=== PATIENT | male | born 1960 | race Caucasian/White ===

== ENCOUNTER 2025-07-25 11:02 | Emergency (ER) | payer OTHER, SELFPAY ==
[2025-07-25] VITALS (8 sets, daily range): BP systolic 116–136; BP diastolic 80–85; PULSE 67–79; RESP 11–22; TEMP 37.3; O2SAT 95–98; BMI 30.3
--- NOTE | 2025-07-25 11:25 | ED.GENADULT ---
HPI - General Adult General Chief complaint: Dizziness/Vertigo Stated complaint: Heart went out of [facility] Time Seen by Provider: 07/25/25 11:13 Source: patient Mode of arrival: ambulatory Limitations: no limitations History of Present Illness HPI narrative: 65-year-old male presenting today after having palpitations for approximately 14 hours. Palpitations started midnight on Saturday and ended around 2:00 p.m. on Saturday, yesterday. He has been asymptomatic since however, he has a plane to catch this afternoon he wants to make sure that his heart is healthy. He states that this happened to him several years ago but did not last so long. While it was occurring he felt a little short of breath, lightheaded especially when standing. No chest pain. He denies any recent illness. Patient does drink alcohol regularly, did have 3 alcoholic beverages on Saturday night before this started. He does drink 1 cup of coffee daily. His past medical history significant for coronary artery disease, hypertension and hyperlipidemia. He is on metoprolol, rosuvastatin and a daily baby aspirin. He states that he had a very small artery on the heart that was 90% blocked and nothing was done because it was too small. He denies headache, confusion, altered mental status, changes in his speech. Related Data Home Medications ?Medication ?Instructions ?Recorded ?Confirmed aspirin 81 mg tablet,delayed 81 mg PO DAILY 07/25/25 07/25/25 release (Adult Aspirin Regimen) metoprolol succinate 25 mg 25 mg PO DAILY 07/25/25 07/25/25 tablet,extended release 24 hr rosuvastatin 20 mg tablet (Crestor) 10 mg PO DAILY 07/25/25 07/25/25 Allergies Allergy/AdvReac Type Severity Reaction Status Date / Time Sulfa (Sulfonamide Allergy Severe Verified 07/25/25 11:12 Antibiotics) Review of Systems Status of ROS: Reports: 10 or more systems reviewed and unremarkable except as noted in History and below PFSH PFS Social History Smoking Status: Never smoker How often do you have a drink containing alcohol: 2-3 times a week AUDIT-C Alcohol total score: 3 Non-prescribed substance use: denies use Exam Narrative: Exam Narrative: Well-nourished well-developed patient in no acute distress. Alert and oriented. Answers questions appropriately. Mood and affect are appropriate. Thoughts are goal oriented and rational. No tangential or magical thinking noted. Patient speaks in full sentences without needing to catch his breath. Patient does not appear ill or toxic. HEENT: Normocephalic atraumatic. Pupils are equally round reactive to light. Extraocular muscles are intact. Conjunctivae are moist without any icterus noted. Moist mucous membranes. Cardiovascular: Heart is regular rate and rhythm S1 and S2 are present without any murmurs. Lungs: Clear to auscultation bilaterally no wheezes rhonchi or rales are appreciated. Patient takes deep breaths without any discomfort. Skin: Well perfused without any obvious rashes. Const: Vital Signs, click to edit/add: Vital Signs - 24 hr 07/25/25 11:05 Temperature 99.1 F Pulse Rate [Right Pulse Oximeter] 79 Respiratory Rate 18 Blood Pressure [Ri ght Upper Arm] 136/85 Pulse Oximetry 97 Oxygen Delivery Me thod Room Air Course Course ED Course: We discussed possible arrhythmias. Patient's stated that she did check his pulse while this was occurring his pulse was around 100. Given that it occurred after night of alcohol consumption, both alcohol and dehydration can certainly play a part in palpitations. Therefore IV was established and 1 L of normal saline was ordered. EKG, read by me, shows normal sinus rhythm with a pulse of 70. Normal QRS, GA. and QTC intervals. Blood work is unremarkable. TSH pending at this time. Vital Signs Vital signs: Initial Vital Signs Temperature 99.1 F 07/25/25 11:05 Temperature Source Temporal Artery Scan 07/25/25 11:05 Pulse Rate 79 07/25/25 11:05 Pulse Rhythm Regular 07/25/25 11:05 Pulse Strength 3+ Normal 07/25/25 11:05 Respiratory Rate 18 07/25/25 11:05 Blood Pressure 136/85 07/25/25 11:05 Blood Pressure Mean 102 07/25/25 11:05 Blood Pressure Position Sitting 07/25/25 11:05 Pulse Oximetry 97 07/25/25 11:05 Oxygen Delivery Method Room Air 07/25/25 11:05 Vital Signs Temperature 99.1 F 07/25/25 11:05 Pulse Rate 79 07/25/25 11:05 Respiratory Rate 18 07/25/25 11:05 Blood Pressure 136/85 07/25/25 11:05 Pulse Oximetry 97 07/25/25 11:05 Oxygen Delivery Method Room Air 07/25/25 11:05 Temperature 99.1 F 07/25/25 11:05 Pulse Rate 79 07/25/25 11:05 Respiratory Rate 18 07/25/25 11:05 Blood Pressure 136/85 07/25/25 11:05 Pulse Oximetry 97 07/25/25 11:05 Oxygen Delivery Method Room Air 07/25/25 11:05 Medications Administered Medications: Discontinued Medications Generic Name Dose Route Start Last Admin Trade Name Freq PRN Reason Stop Dose Admin Sodium Chloride 1,000 mls @ 1,000 mls/hr 07/25/25 11:30 07/25/25 12:31 0.9 % Sodium Chloride 1000 Ml IV 07/25/25 12:29 1,000 mls/hr .Q1H CANDI Administration Medical Decision Making MDM Narrative Medical decision making narrative: 65-year-old male with sustained palpitations overnight. Patient flying back home to [place] this afternoon. Will follow up with his primary care provider. Recommend zio patch and follow-up with cardiology. Lab Data Lab results reviewed: Yes I reviewed the patient's lab results Labs: Lab Results 07/25/25 Range/Units 11:40 WBC 6.97 (4.50-11.00) K/uL RBC 4.51 (4.30-5.90) m/uL Hgb 14.1 (13.5-17.5) gm/dL Hct 43.0 (37.0-53.0) % MCV 95 (80-100) fL MCH 31 (26-34) pg MCHC 33 (32-36) gm/dL RDW Coeff of Nica 13.2 (11.5-15.5) % Plt Count 245 (140-440) K/uL Neut % (Auto) 53.9 (42.0-72.0) % Lymph % (Auto) 29.4 (20-44) % Coryell % (Auto) 12.5 H (0.0-11.0) % Eos % (Auto) 3.7 (0.0-7.0) % Baso % (Auto) 0.4 (0.0-3.0) % Neut # (Auto) 3.75 (1.7-7.0) K/uL Lymph # (Auto) 2.05 (0.90-2.90) K/uL Coryell # (Auto) 0.90 (0.00-0.90) K/UL Eos # (Auto) 0.26 (0.00-0.50) K/uL Baso # (Auto) 0.03 (0.00-0.30) K/uL Abs Immat Gran (auto) 0.01 (0.00-0.30) K/uL Imm/Tot Granulo (auto) 0.1 % Sodium 137 (135-149) mmol/L Potassium 3.7 (3.6-5.1) mmol/L Chloride 100 (96-114) mmol/L Carbon Dioxide 30 (20-32) mmol/L Anion Gap 7 (7-15) mEq/L BUN 16 (7-30) mg/dL Creatinine 1.0 (0.5-1.5) mg/dL Estimated Creat Clear 75.61 Estimated GFR 85 ml/min Glucose 114 (60-115) mg/dL Calcium 9.6 (8.4-10.6) mg/dL Magnesium 1.8 (1.5-2.6) mg/dL Total Bilirubin 1.1 (0.1-1.5) mg/dL Direct Bilirubin 0.2 (0.0-0.5) mg/dL AST 31 (12-35) U/L ALT 31 (4-50) U/L Alkaline Phosphatase 70 (40-150) U/L Total Protein 7.7 (6.0-8.3) g/dL Albumin 4.2 (3.3-5.0) g/dL ECG Data Attestation: I personally reviewed and interpreted this ECG as follows: Discharge Plan Discharge Clinical Impression: Palpitations Patient Disposition: Home, Self-Care Condition: Stable Additional Instructions: Your workup was normal today. I do recommend you follow-up with your primary care provider once you get home. You will likely need a heart monitor and cardiology follow-up. Recommend going to the emergency department if palpitations start again. Prescriptions: No Action rosuvastatin [Crestor] 20 mg tablet 10 mg PO DAILY metoprolol succinate 25 mg tablet extended release 24 hr 25 mg PO DAILY aspirin [Adult Aspirin Regimen] 81 mg tablet,delayed release (DR/EC) 81 mg PO DAILY Follow Up/Referrals: Provider,Not a Local [Primary Care Provider, Family Practice] Stand Alone Forms: MyHealth Info Instructions
--- OUTSIDE RECORDS SUMMARY | 2025-07-25 11:40 | XMS_ITS | Encounter Summary ---
Author Organization [facility] Address [address] [place] [address] Care Team Providers Care Popcorn Vendor Name Role Phone Clinician, Not Found Primary Care Provider Un available Encounter Details Date Type Department Care Team (Latest Contact Info) Description 07/03/1994 Notes/Orders Jin Buckley MD [address] [address] Social History Tobacco Use Types Packs/Day Years Used Date Smoking Tobacco: Never Assessed Sex and Gender Information Value Date Recorded Sex Assigned at Not on file Legal Sex Male 7:00 AM CDT Gender Identity Not on file Sexual Orientation Not on file documented as of this encounter Plan of Treatment Not on file documented as of this encounter Visit Diagnoses Not on filedocumented in this encounter Care Teams Popcorn Vendor Relationship Specialty Start Date End Date Clinician, Not Found, [place] [address] PCP - General 01/04/22 documented as of this encounter
--- OUTSIDE RECORDS SUMMARY | 2025-07-25 11:40 | XMS_ITS | Patient Health Record ---
Author Organization [facility] Address [address] [place], [place] [id number] Care Team Providers Care Precision Instrument Maker Name Role Phone AMELIA SHABAZZ Primary Care Provider AMELIA SHABAZZ Unavailable Unavailable Reason For Referral No Information Medications Medication SIG (Take, Route, Frequency, Duration) Notes Start Date End Date Status Rosuvastatin Calcium 40 MG Tablet 1 tablet Orally Once a day; Duration: 90 days Active Toprol XL 50 MG Tablet Extended Release 24 Hour 1 tablet Orally Once a day; Duration: 90 days Active Problems Problem Type SNOMED Code ICD Code Onset Dates Problem Status W/U Status Risk Notes Problem Essential hypertension (12285716) Essential (primary) hypertension (I10) Active confirmed Problem Erectile dysfunction (disorder) (108102774) Other male erectile dysfunction (N52.8) Active confirmed Problem Counseling (363206927) Other specified counseling (Z71.89) Active confirmed Problem Mixed hyperlipidemia (000075334) Mixed hyperlipidemia (E78.2) Active confirmed Plan Of Treatment Pending Test Test Name Order Date Functional Status Assessment (ADLS) 05/04 Medication Review 05/15/2022 BMI Documented 05/15/2022 Fall Prevention Discussion 05/15/2022 Pain Screening 05/15/2022 Blood Pressure 05/15/2022 Mental Health Issues Discussed Bladder Control Issues Discussed 022 Smoking Eval 05/15/2022 Cologuard 05/15/2022 Insurance Providers Payer Name Payer Address Payer Phone Subscriber Number Group Number Insured Name Patient Relationship to Insured Coverage Start Date Coverage End Date [employer] [address] [address] [place] [id number] ASHLEY GARAY Self - patient is the insured Medical (General) History Surgical History Surgery Date(Month/Year)
--- OUTSIDE RECORDS SUMMARY | 2025-07-25 11:40 | XMS_ITS | Encounter Summary ---
Author Organization [facility] Address [address] [place] [address] Care Team Providers Care Smoke And Flame Specialist Name Role Phone Clinician, Not Found Primary Care Provider Un available Encounter Details Date Type Department Care Team (Latest Contact Info) Description 1996 Notes/Orders Natasha Hernandes MD [address] [place] [id number] Social History Tobacco Use Types Packs/Day Years [...] on filedocumented in this encounter Care Teams Smoke And Flame Specialist Relationship Specialty Start Date End Date Clinician, [place] [address] PCP - General 01/04/22 documented as of this encounter
--- OUTSIDE RECORDS SUMMARY | 2025-07-25 11:40 | XMS_ITS | Encounter Summary ---
Author Organization [facility] Address [address] [place] [address] Care Team Providers Care Fuel Cell Builder Name Role Phone Clinician, Not Found Primary Care Provider Un available Encounter Details Date Type Department Care Team (Late st Contact Info) Description 03/07/1998 Notes/Orders RG-Adult [address] [place], [place] [id number] Timothy Mccollum MD Social History Tobacco Use Types Packs/Day Years Used Date Smoking Tobacco: Never Alcohol Use Standard Drinks/Week Comments Yes 0 (1 standard drink = 0.6 oz pur e alcohol) occ Sex and Gender Information Value Date Recorded Sex Assigned at Not on file Legal Sex Male 7:00 AM CDT Gender Identity Not on file Sexual Orientation Not on file documented as of this encounter Plan of Treatment Not on file documented as of this encounter Visit Diagnoses Not on filedocumented in this encounter Care Teams Fuel Cell Builder Relationship Specialty Start Date End Date Clinician, Not Found, [place] [address] PCP - General 01/04/22 documented as of this encounter
--- OUTSIDE RECORDS SUMMARY | 2025-07-25 11:40 | XMS_ITS | Encounter Summary ---
Author Organization [facility] Address [address] [place] [address] Care Team Providers Care Miter Cutter Name Role Phone Clinician, Not Found Primary Care Provider Un available Encounter Details Date Type Department Care Team (Late st Contact Info) Description 02/23/1997 Notes/Orders RG-Family [address] [address] Rosalba Mckeon, ACCOUNTING DIRECTOR, REMEDIAL TEACHER Social History Tobacco Use Types Packs/Day Years [...] on filedocumented in this encounter Care Teams Miter Cutter Relationship Specialty Start Date End Date Clinician, Not Found, [place] [address] PCP - General 01/04/22 documented as of this encounter
--- OUTSIDE RECORDS SUMMARY | 2025-07-25 11:40 | XMS_ITS | Encounter Summary ---
Author Organization [facility] Address [address] [place] [address] Care Team Providers Care Rug Dry Room Attendant Name Role Phone Joselito Herrera MD Primary Care Provider [phone] Reason for Visit * Reason Comments Med Refill Encounter Details Date Type Department Care Team (Late st Contact Info) Description 11/14/2024 Refill [facility] [address] [phone] Joselito Herrera MD [address] [phone] Social History Tobacco Use Types Packs/Day Years Used Date Smoking Tobacco: Some Days Cigars Passive Smoke Exposure: Past Smokeless Tobacco: Never Alcohol Use Standard Drinks/Week Comments Yes 0 (1 standard drink = 0.6 oz pur e alcohol) PHQ-2 Answer Date Recorded PHQ-9 Total Score 0 08/05/2024 Sex and Gender Information Value Date Recorded Sex Assigned at Male 01/15/2024 10:03 AM CDT Legal Sex Male 10:02 AM SUPERVISOR FURNACE ROOM Gender Identity Male 01/15/2024 10:03 AM CDT Sexual Orientation Straight 01/15/2024 10 :03 AM CDT documented as of this encounter Plan of Treatment Not on file documented as of this encounter Visit Diagnoses Not on filedocumented in this encounter Care Teams Rug Dry Room Attendant Relationship Specialty Start Date End [place] [id number] [place] [address] PCP - General Family Medicine 01/13/24 documented as of this encounter
--- OUTSIDE RECORDS SUMMARY | 2025-07-25 11:40 | XMS_ITS | Clinical Summary ---
Author Organization [facility] Address [address] [place] [address] Care Team Providers Care Manager Software Development Name Role Phone None, Primary Care Provider Unavailabl e Allergies Active Allergy Reactions Criticality Noted Date Comments Sulfa (Sulfonamide Antibiotics) 05/04 Medications aspirin 81 mg oral chewable tablet Chew and swallow 1 tablet (81 mg) once daily. 30 tablet 03/13/2018 1:34 PM CDT 8 Active nitroGLYCERIN (NITROSTAT) 0.4 mg sublingual tablet Take 1 tablet (0.4 mg) under the tongue every 5 (five) minutes as needed for Chest Pain. 25 tablet 03/13/2018 1:34 PM CDT 8 Active clopidogrel (PLAVIX) 75 mg oral tablet Take 1 tablet (75 mg) by mouth once daily. 30 tablet 03/13/2018 1:34 PM CDT 8 Active metoprolol succinate, XL, (TOPROL XL) 50 mg oral extended release tablet 24 HR Take 50 mg by mouth once daily. Active triamcinolone acetonide 0.1% (KENALOG) 0.1 % Top Oint ointment Apply 1 Application to skin twice a day as needed. Active multivit-min/fol ic/vit K/lycop (ONE-A-DAY MEN'S 50 PLUS ORAL) Take 1 tablet by mouth once daily. Active atorvastatin (LIPITOR) 80 mg oral tablet Take 1 tablet (80 mg) by mouth every morning. 30 tablet 11 8 Active isosorbide mononitrate (IMDUR) 30 mg oral extended release tablet 24 HR Take 1 tablet (30 mg) by mouth once daily. 30 tablet 11 03/13/2018 1:34 PM CDT 8 Active acetaminophen (TYLENOL) 325 mg oral tablet Take 1-2 tablets (325-650 mg) by mouth every 4 (four) hours as needed for Fever or Pain (for mild pain , sleep, or temperature greater than 101 F). 0 8 Active Active Problems Problem Noted Date Diagnosed Date ACS (acute coronary syndrome) 03/12/2018 Essential hypertension 03/12/2018 Hyperlipidemia 03/12/2018 Kidney stone 08/31/2014 Family History Medical History Relation Comments High Blood Pressure Father Relation Status Comments Father Social History Tobacco Use Types Packs/Day Years Used Date Smoking Tobacco: Never Smokeless Tobacco: Current Chew Alcohol Use Standard Drinks/Week Comments Yes 0 (1 standard drink = 0.6 oz pur e alcohol) socially Sex and Gender Information Value Date Recorded Sex Assigned at Not on file Legal Sex Male 6:58 AM CDT Gender Identity Not on file Sexual Orientation Not on file Last Filed Vital Signs Vital Sign Reading Time Taken Comments Blood Pressure 109/64 03/13/2018 12:04 PM CDT Pulse 52 03/13/2018 12:04 PM CDT Temperature 36.6 C (97.8 F) 03/13/2018 12:04 PM CDT Respiratory Rate 22 03/13/2018 12:04 PM CDT Oxygen Saturation 95% 03/13/2018 12:04 PM CDT Inhaled Oxygen Concentration - - Weight 94.1 kg (207 lb 6.4 oz) 03/12/2018 1:48 P M CDT Height 177.8 cm (5' 10) 03/12/2018 1:48 PM CDT Body Mass Index 29.76 03/12/2018 1:48 PM CDT Plan of Treatment Health Maintenance Due Date Last Done Comments Colonoscopy 1962 Hepatitis C Screening 1960 Anxiety Screening (CATHERINE-2) 1963 Depression Assessment (PHQ-2) 1963 Pneumococcal 50+ Years (1 of 2 - PCV) 1981 Zoster Vaccine (1 of 2) 02/08/2012 Yearly Review of HCD 03/12/2019 03/12/2018, 03/10/2018 RSV Vaccines (1 - Risk 60-74 years 1-dose series) 2022 COVID-19 Vaccine (2023-2 5 season) 2025 Influenza Vaccine (#1) 2025 08/29/1999 Adult Tetanus Booster 09/20/2025 09/20/2015 Meningococcal B Vaccine Aged Out No l onger eligible based on patient's age to complete this topic Medical Devices Implanted Type Area Pit Shovel Operator Device Identifier Shelf Expiration Date Model / Serial / Lot Stent Ureteral Inlay [id number] - [id number] Implanted:Qty: 1 on 09/01/2014 at [facility] [id number] / / [id number] [place] [address] [place] [address] [place] ELECT Advance Directives For more information, please contact: [phone] * Full Code (Latest Code Status on File) Date Activated Date Inactivated Comments 03/12/2018 2:00 PM 03/13/2018 8:03 PM Question Answer Comments How was code status determined? Patient * Full Code Date Activated Date Inactivated Comments 08/31/2014 5:44 PM 09/02/2014 3:05 AM Question Answer Comments How was code status determined? Patient * Full Code Date Activated Date Inactivated Comments 08/31/2014 4:45 PM 08/31/2014 5:44 PM Question Answer Comments How was code status determined? Patient Care Teams Manager Software Development Relationship Specialty Start Date End Date None, PCP - General 08/05/14
--- OUTSIDE RECORDS SUMMARY | 2025-07-25 11:40 | XMS_ITS | Clinical Summary ---
Author Organization [facility] Address [address] [place] [address] Care Team Providers Care Hr Business Partner Consultant Name Role Phone Joselito Herrera MD Primary Care Provider [phone] Allergies Active Allergy Reactions Criticality Noted Date Comments Sulfa (Sulfonamide Antibiotics) Hives High 03/06 hives., Medications aspirin (ECOTRIN) 81 MG enteric coated tablet Take 1 tablet (81 mg total) by mouth daily. Active multivitamin tablet Take 1 tablet by mouth daily. Active ezetimibe (ZETIA) 10 mg tablet Take 1 tablet (10 mg total) by mouth daily. 90 tablet 3 4 Active clobetasoL (TEMOVATE) 0.05 % ointment APPLY TWICE DAILY TO ECZEMA ON HANDS WITH OCCLUSION FOR UP TO TWO WEEKS FOR FLARES. 4 Active ipratropium (ATROVENT) 42 mcg (0.06 %) nasal sprayIndications:V iral upper respiratory tract infection 2 sprays into each nostril 3 (three) times a day as needed (runny nose, congestion). 15 mL 4 Active rosuvastatin (CRESTOR) 40 MG tabletIndications: Hyperlipidemia, unspecified hyperlipidemia type Take 1 tablet (40 mg total) by mouth daily. 90 tablet 1 4 Active metoprolol succinate XL (TOPROL-XL) 25 mg 24 hr tablet TAKE 1 TABLET BY MOUTH EVERY DAY 90 tablet 2 4 Active valsartan-hydrochl orothiazide (DIOVAN-HCT) 320-25 mg per tabletIndications: Primary hypertension TAKE 1 TABLET BY MOUTH EVERY DAY BEFORE BREAKFAST 90 tablet 1 Active Active Problems Problem Noted Date Diagnosed Date Tobacco use 02/18/2024 Encounter to establish care 02/18/2024 Coronary artery disease invo lving huslia heart without angina pectoris 12/05/2018 01/15/2024 Hyperlipidemia 09/22/2015 01/15/2024 Primary hypertension 03/12/2012 01/15/2024 Encounters Date Type Department Care Team Description 07/21/2025 Refill [facility] [address] [place] [phone] Joselito Herrera MD 05/28/2025 Refill [facility] [place] [address] [place] [phone] Delmer Saba MD Med Refill from Last 3 Months Immunizations Immunization Administration Dates Next Due Influenza Trivalent 08/29/1999 Td 01/17/1998 Tdap 09/20/2015 Family History Medical History Relation Name Comments Hypertension Father Cancer Mother Pulmonary Arterial Hypertension Sister Relation Name Status Comments Father Mother Sister Social History Tobacco Use Types Packs/Day Years Used Date Smoking Tobacco: Some Days Cigars Passive Smoke Exposure: Past Smokeless Tobacco: Never Tobacco Cessation:Ready to Q uit: No; Counseling Given: Yes Alcohol Use Standard Drinks/Week Comments Yes 0 (1 standard drink = 0.6 oz pur e alcohol) PHQ-2 Answer Date Recorded PHQ-9 Total Score 0 08/05/2024 Sex and Gender Information Value Date Recorded Sex Assigned at Male 01/15/2024 10:03 AM CDT Legal Sex Male 10:02 AM BEHAVIORAL SPECIALIST Gender Identity Male 01/15/2024 10:03 AM CDT Sexual Orientation Straight 01/15/2024 10 :03 AM CDT Last Filed Vital Signs Vital Sign Reading Time Taken Comments Blood Pressure 119/83 08/05/2024 1:10 PM CDT Pulse 84 08/05/2024 1:10 PM CDT Temperature - - Respiratory Rate 16 08/05/2024 1:10 PM CDT Oxygen Saturation - - Inhaled Oxygen Concentration - - Weight 95.3 kg (210 lb) 08/05/2024 1:10 PM CDT Height 175.3 cm (5' 9) 08/05/2024 1:10 PM CDT Body Mass Index 31.01 08/05/2024 1:10 PM CDT Plan of Treatment Health Maintenance Due Date Last Done Comments FLEXIBLE SIGMOIDOSCOPY 1962 FOBT 1960 STOOL DNA (COLOGUARD) 1962 50+ PNEUMOCOCCAL VACCINE (1 of 2 - PCV) 1981 COLONOSCOPY SCREENING 2007 COLORECTAL CANCER SCREENING 2007 SHINGLES VACCINES (1 of 2) 02/08/2012 COVID-19 VACCINE (1 - 2023-2 5 season) 2025 INFLUENZA VACCINE (#1) 2025 08/29/1999 HEPATITIS C SCREENING Completed 01/15/2024 MENINGOCOCCAL B SERIES VACCINE Aged Out No longer eligible based on patient's age to complete this topic Procedures Procedure Name Priority Date/Time Associated Diagnosis Comments HEPATITIS C ANTIBODY Routine 01/15/2024 9:06 AM CDT from Last 3 Months or Most Recently Relevant to Health Maintenance Results * Hepatitis C antibody (01/15/2024 9:06 AM CDT) Pathologist [facility] Hepatitis C Ab Non Reactive Non Reactive [facility] Comment: HCV antibody alone does not differentiate between previously resolved infection and active infection. Equivocal and Reactive HCV antibody results should be followed up with an HCV RNA test to support the diagnosis of active HCV infection. 01/15/2024 9:06 AM CDT 01/15/2024 Narrative [facility] - 01/16/2024 10:13 AM CDT Performed at: 01 - [facility] [id number] Shipping Clerk/Admin: Renan Otoole MD, Phone: [phone] Joselito Herrera MD LAB BLOOD ORDERABLES Ava wilbur Result [facility] from Last 3 Months or Most Recently Relevant to Health Maintenance Insurance [facility] Care Teams Hr Business Partner Consultant Relationship Specialty Start Date End Date Joselito [place]rera [place] [id number] [place] [address] PCP - General Family Medicine 01/13/24
--- OUTSIDE RECORDS SUMMARY | 2025-07-25 11:40 | XMS_ITS | Encounter Summary ---
Author Organization [facility] Address [address] [place] [address] Care Team Providers Care Personal Care Aid Name Role Phone Clinician, Not Found Primary Care Provider Un available Encounter Details Date Type Department Care Team (Late st Contact Info) Description 04/15/1995 Notes/Orders RG-Family [address] [address] Rosalba Mckeon, CORDWAINER, RN SANE Social History Tobacco Use Types Packs/Day Years [...] on filedocumented in this encounter Care Teams Personal Care Aid Relationship Specialty Start Date End Date Clinician, Not Found, [place] [address] PCP - General 01/04/22 documented as of this encounter
--- OUTSIDE RECORDS SUMMARY | 2025-07-25 11:40 | XMS_ITS | Encounter Summary ---
Author Organization [facility] Address [address] [place] [address] Care Team Providers Care Steam Meter Reader Name Role Phone Clinician, Not Found Primary Care Provider Un available Encounter Details Date Type Department Care Team (Late st Contact Info) Description 06/17/1996 Notes/Orders RG-Family Practice [address] [place] [id number] Francisca Ware MD Social History Tobacco Use Types Packs/Day [...] on filedocumented in this encounter Care Teams Steam Meter Reader Relationship Specialty Start Date End Date Clinician, Not Found, [place] [address] PCP - General 01/04/22 documented as of this encounter
--- OUTSIDE RECORDS SUMMARY | 2025-07-25 11:40 | XMS_ITS | Clinical Summary ---
[facility] Address [address], [place] [address] Care Team Providers Care Straightening Press Operator Name Role Phone Clinician, Not Found MD Primary Care Provider Un available Source Comments You are receiving this document as you are listed as the primary care provider,follow-up provider, or the patient has been referred to you for consultation.This is in compliance with the Medicare and[facility] Hospitalca[facility] EHR Incentive Program,which states Providers who transition their patient to another setting of careor provider of care or refers their patient to another provider of care shouldprovide summary care record for each transition of care or referral. [facility] Allergies Active Allergy Reactions Criticality Noted Date Comments Atorvastatin Hives High 03/17/2018 Sulfa Antibiotics Hives High 04/03/2011 hives., Medications aspirin 81 MG chewable tablet Chew and swallow 1 Tablet (81 mg) by mouth. 8 Active Multiple Vitamin (MULTI VITAMIN MENS OR) Take 1 Tab by mouth. Active nitroglycerin (NITROSTAT) 0.[address] 0.4 mg under tongue. 8 Active triamcinolone acetonide (KENALOG) 0.1 % ointmentIndicatio ns:Dermatitis Apply topically two times daily as needed. 80 g 0 Active metoprolol succinate (TOPROL XL) 50 MG 24 hour release tabletIndications :Essential hypertension (HRC) TAKE 1 TABLET BY MOUTH EVERY DAY 90 Tablet 1 Active rosuvastatin (CRESTOR) 20 MG tabletIndications :Coronary artery disease involving nikolski coronary artery of nikolski heart with unstable angina pectoris (HRC) TAKE 1 TABLET BY MOUTH EVERY DAY 90 Tablet 1 Active clobetasol (TEMOVATE) 0.05 % ointment Apply topically two times a day. 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 03/2000 Immunizations Immunization Administration Dates Next Due Flu Vac (3+ yrs) 08/29/1999 TDAP (BOOSTRIX) 09/20/2015 Td 01/17/1998 Varicella 01/18/1998(Deferred: Immune by Walter vaughan) Family History Medical History Relation Name Comments Allergies Father Asthma Father High Blood Pressure Father Cancer Mother lung Emphysema Mother Joint/Muscle Problem Mother Arthritis Sister 1 Allergies Sister 3 Asthma Sister 4 Relation Name Status Comments Father Alive Mother (Age 71) Brother Alive Sister 1 Alive Sister 2 Alive Sister 3 Sister 4 Social History Tobacco Use Types Packs/Day Years Used Date Smoking Tobacco: Never Cigarettes Smokeless Tobacco: Former Comments:chews occasionally Alcohol Use Standard Drinks/Week Comments Yes 5 (1 standard drink = 0.6 oz pur e alcohol) Sex and Gender Information Value Date Recorded Sex Assigned at Not on file Legal Sex Male 7:00 AM CDT Gender Identity Not on file Sexual Orientation Not on file Occupation Industry Job Start Date Job End Date Not on file Not on file Not on file Not on file Last Filed Vital Signs Vital Sign Reading Time Taken Comments Blood Pressure 180/99 10/26/2023 2:09 PM FINISH INSPECTOR Pulse 58 10/26/2023 2:09 PM FINISH INSPECTOR Temperature 36.6 C (97.8 F) 10/26/2023 2:09 PM FINISH INSPECTOR Respiratory Rate 16 10/26/2023 2:09 PM FINISH INSPECTOR Oxygen Saturation 98% 10/26/2023 2:0 9 PM FINISH INSPECTOR Inhaled Oxygen Concentration - - Weight 89.4 kg (197 lb) 08/18/2020 11:4 0 AM CDT patient reported Height 177.8 cm (5' 10) 08/18/2020 11: 40 AM CDT Body Mass Index 28.27 08/18/2020 11:40 AM CDT Plan of Treatment Health Maintenance Due Date Last Done Comments Colon Cancer Screening Plan Due 1960 Hep C Screening (Preventive Services) 1960 HIV Screening (Preventive Services) 1978 Pneumococcal Vaccine 50+ Yrs (1 of 2 - PCV) 1981 Zoster/Shingles Vaccine (1 of 2) 02/08/2012 Adult Preventive Visit 08/18/2021 08/18/2020 PSA Screening Discussion 09/08/2021 09/08/2020, 09/04 COVID-19 Vaccine ( - season) 2025 Influenza Vaccine (#1) 2025 08/29/1999 Cholesterol 09/08/2025 09/08/2020, 12/05, 09/20/2015, Additional history exists DTaP/Tdap/Td Vaccine (2 - Tdap) 09/20/2025 09/20/2015, 01/17/1998 RSV Vaccine (1 - 1-dose 75+ series) 2037 HepA Vaccine Aged Out No longer eligi ble based on patient's age to complete this topic HepB Vaccine Aged Out No longer eligi ble based on patient's age to complete this topic Hib Vaccine Aged Out No longer eligi ble based on patient's age to complete this topic IPV (Polio) Vaccine Aged Out No longe r eligible based on patient's age to complete this topic MCV4 Vaccine Aged Out No longer eligi ble based on patient's age to complete this topic Meningococcal B Vaccine Aged Out No l onger eligible based on patient's age to complete this topic Procedures Procedure Name Priority Date/Time Associated Diagnosis Comments PROSTATIC SPECIFIC ANTIGEN(SCREEN) Routine 09/08/2020 8:56 AM FINISH INSPECTOR Screening PSA (prostate specific antigen) LIPID PANEL & DIRECT LDL (IF NEEDED) Routine 09/08/2020 8:56 AM FINISH INSPECTOR Coronary artery disease involving nikolski coronary artery of nikolski heart with unstable angina pectoris (HRC) from Last 3 Months or Most Recently Relevant to Health Maintenance Results * Lipid Panel - LDLD If Trig High (09/08/2020 8:56 AM FINISH INSPECTOR) Cholesterol 169 0 - 199 mg/dL 09/08/2020 11:42 AM FINISH INSPECTOR [facility] Triglyceride 85 <=149 mg/dL 09/08/2020 11:42 AM [facility] HDL Cholesterol 44 >=40 mg/dL 0 11:42 AM [facility] LDL, Calculated 108 <130 mg/dL 0 11:42 AM [facility] Non HDL Chol, Calculated 125 mg/dL 09/08/2020 11:42 AM [facility] Cholesterol/HDL Ratio 3.8 09/08/2020 11:42 AM [facility] Hours Fasting 12 09/08/2020 11:42 AM FINISH INSPECTOR [facility] Blood Venipuncture / Unknown 09/08/2020 8:56 AM FINISH INSPECTOR 09/08/2020 8:56 AM FINISH INSPECTOR Sony Villegas APRN, SAS ETL DEVELOPER LAB_1 Fin al Result [facility] CLIA: [id number] [address] [place] [address], [facility] [address] [place] [address], [facility] [phone] * Prostatic Specific Antigen (09/08/2020 8:56 AM FINISH INSPECTOR) Prostatic Specific Antigen 0.8 0.0 - 4.0 ng/mL 09/08/2020 1:37 PM FINISH INSPECTOR [facility] Blood Venipuncture / Unknown 09/08/2020 8:56 AM FINISH INSPECTOR 09/08/2020 8:56 AM FINISH INSPECTOR Narrative [facility] - 09/08/2020 1:37 PM FINISH INSPECTOR The Manuel PSA Chemiluminescent immunoassay is used. Results obtained with different test methods or kits cannot be used interchangeably. us Sony Villegas APRN, SAS ETL DEVELOPER LAB_1 Fin al Result [facility] [address] [place] [address], [facility] from Last 3 Months or Most Recently Relevant to Health Maintenance Insurance MEDICA CHOICE * Guarantor: JORDEN CABELLO Account Type Relation to Patient Date of Phone Billing Address Personal/Family 1960 [id number] [id number] Care Teams Straightening Press Operator Relationship Specialty Start Date End Date Clinician, Not Found, [place] [address] PCP - General 01/04/22
--- OUTSIDE RECORDS SUMMARY | 2025-07-25 11:40 | XMS_ITS | Encounter Summary ---
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
--- OUTSIDE RECORDS SUMMARY | 2025-07-25 11:40 | XMS_ITS | Encounter Summary ---
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
--- OUTSIDE RECORDS SUMMARY | 2025-07-25 11:40 | XMS_ITS | Encounter Summary ---
Author Organization [facility] Address [address] [place] [address] Care Team Providers Care Feed Mixer Helper Name Role Phone Clinician, Not Found Primary Care Provider Un available Encounter Details Date Type Department Care Team (Latest Contact Info) Description 10/30/1994 Notes/Orders Natasha Hernandes MD [address] [place] [phone] Social History Tobacco Use Types Packs/Day Years [...] on filedocumented in this encounter Care Teams Feed Mixer Helper Relationship Specialty Start Date End Date Clin[place], [place] [address] PCP - General 01/04/22 documented as of this encounter
--- OUTSIDE RECORDS SUMMARY | 2025-07-25 11:40 | XMS_ITS | Clinical Summary ---
Author Organization [facility] Address [address] [place] [address] Care Team Providers Care Human Resources Compliance Manager Name Role Phone Jana Rendon Primary Care Provider Unavailable Allergies Active Allergy Reactions Criticality Noted Date Comments Sulfa (Sulfonamide Antibiotics) Rash 11/2014 Medications No known medications Active Problems Problem Noted Date Diagnosed Date Adhesive capsulitis of right shoulder 12/02/2014 Family History Medical History Relation Name Comments Hypertension Father Arthritis Mother rheumatoid Cancer Mother Arthritis Sister rheumatoid Hypertension Sister pulmonary hyper tension Relation Name Status Comments Father Mother Sister Social History Tobacco Use Types Packs/Day Years Used Date Smoking Tobacco: Never Smokeless Tobacco: Never Alcohol Use Standard Drinks/Week Comments Yes 3.3 (1 standard drink = 0.6 oz p ure alcohol) Sex and Gender Information Value Date Recorded Sex Assigned at Not on file Legal Sex Male 2:41 PM ASPHALT MIXER Gender Identity Not on file Sexual Orientation Not on file 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 - [employer] Not on file Not on sharon e Not on file Obstetrics History Plan of Treatment Health Maintenance Due Date Last Done Comments Tetanus booster 1973 Depression screening for age 12+ 1974 HIV for age 15-65 1977 BMI (ht and wt on same day) for age 18+ 02/08/1980 Hepatitis C screening for ag e 18-79 02/08/1980 Colonoscopy through age 75 2007 Lipids for age 45-75 2007 Pneumococcal series for age 50+ (1 of 1 - PCV) 02/08/2012 Zoster (shingles) series for age 50+ (1 of 2) 02/08/2012 COVID-19 vaccine series (1 - 2023- season) 2025 Influenza Vaccine (#1) 2025 RSV vaccine for adults or (1 - 1-dose 75+ series) 2037 Hepatitis B series for 19+ Aged Out N o longer eligible based on patient's age to complete this topic Insurance [address] [id number] x5 (Home) [phone] x5 (Work) [address] [address] [place] [address] Care Teams Human Resources Compliance Manager Relationship Specialty Start Date End Date Jana Rendon PCP - General 11/18/14
--- OUTSIDE RECORDS SUMMARY | 2025-07-25 11:40 | XMS_ITS | Encounter Summary ---
Author Organization [facility] Address [address] [place] [address] Care Team Providers Care Roll Over Press Operator Name Role Phone Clinician, Not Found Primary Care Provider Un available Encounter Details Date Type Department Care Team (Latest Contact Info) Description 06/23/1996 Notes/Orders Jin Buckley MD [address] [address] Social History Tobacco Use Types Packs/Day Years [...] on filedocumented in this encounter Care Teams Roll Over Press Operator Relationship Specialty Start Date End Date Clinician, Not Found, [place] [address] PCP - General 01/04/22 documented as of this encounter
--- OUTSIDE RECORDS SUMMARY | 2025-07-25 11:40 | XMS_ITS | Encounter Summary ---
Author Organization [facility] Address [address] [place] [address] Care Team Providers Care Blood Bank Laboratory Technician Name Role Phone Clinician, Not Found Primary Care Provider Un available Encounter Details Date Type Department Care Team (Latest Contact Info) Description 03/19/1994 Notes/Orders Jin Buckley MD [address] [address] Social History Tobacco Use Types Packs/Day Years [...] on filedocumented in this encounter Care Teams Blood Bank Laboratory Technician Relationship Specialty Start Date End Date Clinician, Not Found, [place] [address] PCP - General 01/04/22 documented as of this encounter
--- OUTSIDE RECORDS SUMMARY | 2025-07-25 11:40 | XMS_ITS | Encounter Summary ---
Author Organization [facility] Address [address] [place] [address] Care Team Providers Care Technical Services Librarian Name Role Phone Joselito Herrera MD Primary Care Provider [phone] Reason for Visit * Reason Comments Med Refill Encounter Details Date Type Department Care Team (Late st Contact Info) Description 08/20/2024 Refill [facility] [id number] [place] [address] [place] [phone] [place] S[place] [id number] [place] [address] [place] [address] Med Refill Social History Tobacco Use Types Packs/Day Years [...] AM CDT 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
[2025-07-25 11:54] LABS: Hematocrit* 43.0 % (37.0-53.0); Hemoglobin* 14.1 gm/dL (13.5-17.5); Immature Granulocytes Abs Auto 0.01 K/uL (0.00-0.30); Immature Granulocytes Pct Auto 0.1 %; Lymphocytes Absolute Auto 2.05 K/uL (0.90-2.90); Mean Corpuscular HGB Conc 33 gm/dL (32-36); Mean Corpuscular Hemoglobin 31 pg (26-34); Mean Corpuscular Volume 95 fL (80-100); RDW Coefficient of Variation % 13.2 % (11.5-15.5); Red Blood Count* 4.51 m/uL (4.30-5.90); White Blood Count* 6.97 K/uL (4.50-11.00)
[2025-07-25 11:57] LABS: Slide Review Reflex No
[2025-07-25 12:18] LABS: Chloride* 100 mmol/L (96-114)
[2025-07-25 12:19] LABS: Albumin* 4.2 g/dL (3.3-5.0); Potassium* 3.7 mmol/L (3.6-5.1); Sodium* 137 mmol/L (135-149)
[2025-07-25 12:21] LABS: Anion Gap 7 mEq/L (7-15); Blood Urea Nitrogen* 16 mg/dL (7-30); Carbon Dioxide* 30 mmol/L (20-32); Creatinine* 1.0 mg/dL (0.5-1.5); Est. Creatinine Clearance* 75.61; Estimated Glomerular Filt Rate 85 ml/min
[2025-07-25 12:22] LABS: Alanine Aminotransferase* 31 U/L (4-50); Alkaline Phosphatase* 70 U/L (40-150); Aspartate Amino Transferase* 31 U/L (12-35); Bilirubin Direct* 0.2 mg/dL (0.0-0.5); Bilirubin Total* 1.1 mg/dL (0.1-1.5); Calcium* 9.6 mg/dL (8.4-10.6); Glucose* 114 mg/dL (60-115); Total Protein* 7.7 g/dL (6.0-8.3)
== END 2025-07-25 12:56 | disposition home or self-care (01) ==
PROVIDERS: Emergency Provider Family Medicine
DX: R00.2 Palpitations (principal)
CPT/HCPCS: 36415; 80048; 80076; 83735; 84443; 85025; 93005; 99284; J7030